=== PATIENT | female | born 1995 | race Hispanic/Latino ===

== ENCOUNTER 2024-09-26 08:51 | Emergency (ER) | payer OTHER ==
[~2024-09-26] VITALS: Ht 142.2 cm; Wt 69.4 kg
[2024-09-26 09:32] LABS: BASOPHILS % 0.3 % (0.0-1.0); EOSINOPHILS % 0.3 % (0.0-6.0); HEMATOCRIT 36.8 % (34.2-44.1); HEMOGLOBIN 11.6 g/dL (12.0-16.0); LYMPHOCYTES # (AUTO) 0.9 (1.0-3.2); LYMPHOCYTES % 13.2 % (18.0-39.1); MEAN CORPUSCULAR HEMOGLOBIN 29.3 pg (28-32); MEAN CORPUSCULAR HGB CONC 31.5 g/dL (31-35); MEAN CORPUSCULAR VOLUME 92.9 fL (81-99); MONOCYTES # (AUTO) 0.8 (0.2-0.8); NEUTROPHILS # (AUTO) 5.1 (2.1-6.9); NEUTROPHILS % 75.1 % (38.7-80.0); PLATELET COUNT 323 x10e3/uL (140-360); RED BLOOD COUNT 3.96 x10e6/uL (3.6-5.1); RED CELL DISTRIBUTION WIDTH 12.9 % (11.7-14.4)
[2024-09-26] MEDS: METOCLOPRAMIDE HCL 10 MG/2ML VIAL IV ONE (09:49)
[2024-09-26] MEDS: SODIUM CHLORIDE 0.9% 1000ML 1,000 ML IV ONE (09:49)
[2024-09-26 09:51] LABS: CORONAVIRUS COVID-19 AG NEGATIVE (NEGATIVE); INFLUENZA A AG NEGATIVE (NEGATIVE); INFLUENZA B AG NEGATIVE (NEGATIVE)
[2024-09-26 09:59] LABS: ALBUMIN 3.8 g/dL (3.5-5.0); ALBUMIN/GLOBULIN RATIO 0.9 (0.8-2.0); ANION GAP 17.6 mmol/L (8-16); BILIRUBIN,TOTAL 0.4 mg/dL (0.2-1.2); CALCIUM 10.1 mg/dL (8.4-10.2); CREATININE, SERUM 0.66 mg/dL (0.57-1.11); POTASSIUM 3.6 mmol/L (3.5-5.1)
[2024-09-26 10:01] LABS: INR 0.96; PROTHROMBIN TIME 13.4 seconds (11.9-14.5)
[2024-09-26 10:02] LABS: PARTIAL THROMBOPLASTIN TIME 32.1 seconds (23.8-35.5)
[2024-09-26 11:10] VITALS: PULSE 99; RESP 16; TEMP 98.9; O2SAT 99
[2024-09-26 11:21] LABS: BACTERIA,URINE MANY /HPF; BILIRUBIN,URINE SMALL (NEGATIVE); CLARITY,URINE TURBID (CLEAR); COLOR,URINE YELLOW (YELLOW); EPITHELIAL CELLS,URINE MANY /LPF; GLUCOSE, URINE NEGATIVE (NEGATIVE); KETONES,URINE 2+ (NEGATIVE); LEUKOCYTE ESTERASE ,URINE NEGATIVE (NEGATIVE); NITRITE,URINE NEGATIVE (NEGATIVE); PH,URINE 6.5 (5 - 7); PROTEIN,URINE DIPSTICK 2+ (NEGATIVE); URINE UROBILINOGEN 0.2 mg/dL (0.2 - 1)
[2024-09-26] MEDS ORDERED: METOCLOPRAMIDE10 MG PO (11:42)
[2024-09-26] MEDS ORDERED: CEPHALEXIN500 MG PO (11:42)
== END 2024-09-26 12:21 | disposition home or self-care (01) ==
LOC: ER 09:01
DX: O23.42 Unspecified infection of urinary tract in pregnancy, second trimester (principal); R50.9 Fever, unspecified; Z11.52 Encounter for screening for COVID-19
CPT/HCPCS: 36415; 80053; 81001; 83605; 85025; 85610; 85730; 87040; 87086; 87428; 99284; J0696; J2765; J7030; 93005